=== PATIENT | female | born 1995 | race Caucasian/White ===

== ENCOUNTER 2021-12-22 10:45 | Outpatient (CLI) | payer OTHER, SELFPAY ==
[2021-12-22 11:44] LABS: Beta HCG Quantitative 38.01 mIU/ML
== END 2021-12-22 10:46 | disposition home or self-care (01) ==
PROVIDERS: PCP Emergency Medicine; Visit Provider Obstetrics & Gynecology
DX: O20.0 Threatened abortion (principal)
CPT/HCPCS: 36415; 84702

== ENCOUNTER 2021-12-25 14:26 | Outpatient (CLI) | payer OTHER, SELFPAY ==
--- NOTE | ~2021-12-25 | US_ITS ---
US OB <=14 wk fetus w TV DATE: 12/25/2021 15:19 INDICATION: First trimester vaginal bleeding, passage of clots TECHNIQUE: Real-time imaging via transabdominal and transvaginal approaches COMPARISON: None FINDINGS: The uterus measures 7.8 cm height, 5.8 cm transverse and 4.6 cm anteroposterior dimension. The endometrial echo measures 4 mm AP dimension. No intrauterine gestational sac is visualized. The right ovary measures 3.8 x 2.4 x 1.6 cm with a 1.6 x 2.6 cm cyst. The left ovary measures 3.3 x 1.9 x 1.7 cm. No free pelvic fluid collection is detected. IMPR ESSION: No evidence of intrauterine gestational sac Reviewed, dictated and finalized at [facility]. Reviewed, dictated and finalized at [facility]. SERVICES ARCHITECT
[2021-12-25 15:53] LABS: Beta HCG Quantitative 28.36 mIU/ML
== END 2021-12-25 14:27 | disposition home or self-care (01) ==
PROVIDERS: PCP Emergency Medicine; Visit Provider Obstetrics & Gynecology
DX: O46.91 Antepartum hemorrhage, unspecified, first trimester (principal); Z3A.00 Weeks of gestation of pregnancy not specified
CPT/HCPCS: 36415; 76801; 76817; 84702

== ENCOUNTER 2022-01-01 13:15 | Outpatient (CLI) | payer OTHER, SELFPAY ==
[2022-01-01 14:16] LABS: Beta HCG Quantitative < 2.39 mIU/ML
== END 2022-01-01 13:16 | disposition home or self-care (01) ==
LOC: ANHLAB 13:17
PROVIDERS: PCP Emergency Medicine; Visit Provider Obstetrics & Gynecology
DX: Z34.80 Encounter for supervision of other normal pregnancy, unspecified trimester (principal); Z3A.00 Weeks of gestation of pregnancy not specified
CPT/HCPCS: 36415; 84702

== ENCOUNTER 2022-02-08 08:35 | Outpatient (CLI) | payer OTHER, SELFPAY | END 2022-02-08 08:36 | disposition home or self-care (01) | LOC: ANHLAB 08:37 | PROVIDERS: PCP Emergency Medicine; Visit Provider Obstetrics & Gynecology | DX: Z32.00 Encounter for pregnancy test, result unknown (principal); Z3A.00 Weeks of gestation of pregnancy not specified | CPT/HCPCS: 36415; 84702 ==

== ENCOUNTER 2022-02-08 15:59 | Outpatient (CLI) | payer OTHER, SELFPAY ==
--- NOTE | ~2022-02-08 | US_ITS ---
EXAMINATION: US OB <=14 wk fetus w TV EXAM DATE: 02/08/2022 16:55 INDICATION: Threatened . 1st trimester.. TECHNIQUE: Pelvic obstetrical transabdominal and transvaginal sonogram was performed by a technologi . There are multiple grayscale and Doppler images available for interpretation. Comparison is made to prior examination from 12/25/2021. FINDINGS: Uterus measures 9.4 x 7.6 x 5.2 cm. There is intrauterine gestation sac. The 10 mm mean sac diameter corresponds to estimated gestational age by ultrasound of 5 weeks 5 days. No definite yolk sac identified. No pole. There is moderate size subchorionic hematoma measuring 4 mm in t hickness by 2.6 cm in diameter. The ovaries are morphologically normal. IMPRESSION: Intrauterine gestation sac with moderate-sized subchorionic hematoma. Cannot confirm or exclude viability at this time. Consider follow-up ultrasound in one week. Reviewed, dictated and finalized at [facility]. IMPRESSION: Intrauterine gestation sac with moderate-sized subchorionic hemato ma. Cannot confirm or exclude viability at this time. Consider follow-up ultras ound in one week.
== END 2022-02-08 16:00 | disposition home or self-care (01) ==
LOC: ANHIMG 16:00
PROVIDERS: PCP Emergency Medicine; Visit Provider Obstetrics & Gynecology
DX: O20.0 Threatened abortion (principal); Z3A.00 Weeks of gestation of pregnancy not specified
CPT/HCPCS: 36415; 76801; 76817; 84702

== ENCOUNTER 2022-07-12 15:32 | Outpatient (CLI) | payer OTHER, SELFPAY ==
--- NOTE | 2022-07-12 15:50 | ECG_ITS ---
Measurements Intervals [place] Rate: 80 P: 38 IN: 152 QRS: 54 QRSD: 77 T: 38 QT: 337 QTc: 390 Interpretive Statements SINUS RHYTHM NORMAL ECG NO PREVIOUS ECG AVAILABLE FOR COMPARISON Electronically Signed On 07-12-2022 16:00:30 CDT by Waylon Grimaldo M.D.
== END 2022-07-12 15:33 | disposition home or self-care (01) ==
PROVIDERS: PCP Emergency Medicine; Visit Provider Obstetrics & Gynecology
DX: R07.9 Chest pain, unspecified (principal)
CPT/HCPCS: 93005

== ENCOUNTER 2022-09-05 09:06 | Emergency (ER) | payer OTHER, SELFPAY ==
[2022-09-05 09:11] VITALS: BP 103/59; PULSE 115; RESP 16; TEMP 36.6; O2SAT 99
--- NOTE | 2022-09-05 09:12 | ED.URI ---
HPI - URI/Sore Throat General Stated Complaint: Sore Throat Time Seen by Provider: 09/05/22 09:12 Source: patient and RN notes reviewed History of Present Illness HPI Narrative: Patient is a 27-year-old female who presents the urgent care with complaints of a sore throat that started yesterday. Patient states that she has had some drainage but she typically has that during this time. Patient states that she takes a daily Zyrtec. Denies any fever, nausea, vomiting, headache. Patient states that she is . No other acute complaints. No acute distress noted. Patient read the plan of care. Some parts of this dictation were generated by voice recognition software and may contain typographical and/or grammatical inaccuracies. Related Data Home Medications Medication Instructions Recorded Confirmed Vitamin D3 1 tablet WEEKLY 09/05/22 09/05/22 cetirizine 5 mg tablet 5 mg DAILY 09/05/22 09/05/22 escitalopram oxalate 10 mg tablet 10 mg DAILY 09/05/22 09/05/22 Allergies Allergy/AdvReac Type Severity Reaction Status Date / Time Penicillins Allergy Severe Swelling Verified 09/05/22 09:35 Cat Dander Allergy Unknown UNKNOWN Uncoded 09/05/22 09:35 Review of Systems Review of Systems: CONSTITUTIONAL: Denies fever, chills, or sweats. EYES: Denies visual changes, redness, or discharge. ENT: Denies rhinorrhea, congestion, otalgia. Reports of sore throat CARDIOVASCULAR: Denies chest pain, palpitations, or edema. RESPIRATORY: Denies cough or dyspnea. GASTROINTESTINAL: Denies abdominal pain, nausea, vomiting, or diarrhea. GENITOURINARY: Denies dysuria or hematuria. SKIN: Denies rash or itching. MUSCULOSKELETAL: Denies back pain, joint pain, or myalgia. NEUROLOGIC: Denies headache, numbness, or weakness. All other systems reviewed are negative, except as documented in HPI. PMFSH Comments At the time of my signature, I reviewed and agree with the nursing past medical, surgical, social, and family history. There is no relevant family history pertinent to the patient complaint. Exam Narrative: GENERAL: This is a well-nourished, well-developed patient, in no apparent distress. HEAD: normocephalic, atraumatic. EYES: PERRL. Sclera clear/white. Vision is grossly intact. EARS: External ears normal, auditory canals clear and without drainage, TMs normal without perforation. Hearing grossly intact. NOSE: External nose normal with no obvious nasal discharge, nares without redness, no rhinorrhea. THROAT: Mucous membranes moist, mild erythema noted posterior pharynx with mild bilateral tonsillar edema without exudate or ulceration. Moderate postnasal drainage NECK: Neck supple, non-tender without lymphadenopathy, masses or thyromegaly. CARDIOVASCULAR: Regular rate and rhythm without murmurs, gallops, or rubs. RESPIRATORY: Clear to auscultation. Breath sounds equal bilaterally. No wheezes, rales, or rhonchi. SKIN: warm, intact with no suspicious lesions or rash, good texture and turgor. NEURO: awake, alert, and oriented to person, place and time. There were no obvious focal neurologic abnormalities. EXTREMITIES: No clubbing, cyanosis, or edema. Course Course Level of Care: Express Care Visit Vital Signs Vital signs: Vital Signs Temperature 97.8 F 09/05/22 09:11 Pulse Rate 115 H 09/05/22 09:11 Respiratory Rate 16 09/05/22 09:11 Blood Pressure 103/59 L 09/05/22 09:11 Pulse Oximetry 99 09/05/22 09:11 Oxygen Delivery Room Air 09/05/22 09:11 Temperature 97.8 F 09/05/22 09:11 Pulse Rate 115 H 09/05/22 09:11 Respiratory Rate 16 09/05/22 09:11 Blood Pressure 103/59 L 09/05/22 09:11 Pulse Oximetry 99 09/05/22 09:11 Oxygen Delivery Room Air 09/05/22 09:11 Reviewed MDM - URI/Sore Throat MDM Narrative Medical decision making narrative: Reviewed lab results with the patient. She is aware that strep swab was negative. Educated patient on culture we will call within 72 hours if culture is positive and a
== END 2022-09-05 09:50 | disposition home or self-care (01) ==
PROVIDERS: Emergency Provider Nurse Practitioner Family; PCP Emergency Medicine
DX: J02.9 Acute pharyngitis, unspecified (principal); J45.909 Unspecified asthma, uncomplicated; F41.9 Anxiety disorder, unspecified
CPT/HCPCS: 87081; 87880; 99213; G0463

== ENCOUNTER 2022-09-24 18:50 | Outpatient (CLI) | payer OTHER, SELFPAY ==
--- NOTE | 2022-09-24 19:32 | PC.NURSE ---
RNLuis Fernando called Dr. Huber, updated on PTs arrival with possible ROM. ROM plus negative, FHT reactive, Vitals WNL. Discharge orders given. PT given opportunity to ask questions and answered by RICARDO.
== END 2022-09-24 18:51 | disposition home or self-care (01) ==
PROVIDERS: PCP Emergency Medicine; Visit Provider Obstetrics & Gynecology
DX: O42.90 Premature rupture of membranes, unspecified as to length of time between rupture and onset of labor, unspecified weeks of gestation (principal); Z3A.00 Weeks of gestation of pregnancy not specified
CPT/HCPCS: 59025; 84112

== ENCOUNTER 2022-10-03 04:50 | Inpatient (IN) | payer OTHER, SELFPAY ==
--- NOTE | 2022-09-11 15:53 | PC.NURSE ---
Received after pre-admit appointment done
[2022-10-03] VITALS (28 sets, daily range): BP systolic 97–129; BP diastolic 56–100; PULSE 80–103; RESP 16–18; TEMP 36.2–36.9; O2SAT 99–100; BMI 36.8
--- NOTE | 2022-10-03 06:36 | LDADM ---
This patient, Geeta Webber, was admitted to Labor/Delivery/Recovery 103 on 10/03/22 at 04:50. Plans for labor, pain management and were discussed with patient. Patient/family oriented to hospital policies and general routines including ID bracelet, bed and alarms, visiting hours, pain management, procedures, bathroom and other care routines, personal items, smoking policy, room service/diet and guest tray routines, infant security routines, and visiting hours. Patient/Family are encouraged to report perceived risks to care and to ask questions if they do not understand what they are told or what they should do. See OBIX for further documentation.
[2022-10-03] MEDS: LACTATED RINGERS 1,000 ML 125 ML IV CONT (06:45)
[2022-10-03] MEDS: OXYTOCIN 30 UNITS/NS 500 ML 30 UNITS/500 ML BAG IV CONT (06:51)
[2022-10-03 07:02] LABS: Basophils Percent Auto 0.3 % (0.2-1.2); Eosinophils Absolute Auto 0.1 K/mm3 (0-0.3); Hematocrit 29.4 % (37.0-47.0); Hemoglobin 9.3 g/dL (12.0-15.0); Immature Granulocyte Absolute 0.03 K/mm3 (0.00-0.031); Immature Granulocyte Percent A 0.4 % (0-0.5); Lymphocytes Absolute Auto 1.77 K/mm3 (0.9-3.2); Lymphocytes Percent Auto 24.7 % (18.3-44.2); Mean Corpuscular HGB Conc 31.6 g/dl (32-36); Mean Corpuscular Hemoglobin 26.2 pg (26-34); Mean Corpuscular Volume 82.8 fl (80-100); Mean Platelet Volume 9.4 fl (7.4-10.4); Monocytes Absolute Auto 0.5 K/mm3 (0.1-0.6); Monocytes Percent Auto 6.5 % (2.6-8.5); Neutrophils Absolute Auto 4.8 K/mm3 (1.3-6.7); Neutrophils Percent Auto 67.1 % (45.5-73.1); Platelet Count Result 295 k/mm3 (150-375); Red Blood Count 3.55 M/mm3 (4.2-5.4); Red Cell Distribution Width 15.1 % (11.5-14.5); White Blood Count 7.2 K/mm3 (4.5-10.0)
--- NOTE | 2022-10-03 07:41 | PM.IMHP ---
H&P: HPI History of Present Illness Date/Time: 10/03/22 07:41 Chief Complaint: induction of labor at term Narrative: this is a 4 para 2 with last menstrual period 12/19/2021, EDC of 10/09/2022 placing her at 39 weeks gestation for induction of labor. Her cervix is favorable she is negative for group B strep. Risks and benefits were PMFSH Family History Family History Grandparent Diabetes mellitus Cancer Mother Hypertension Cerebrovascular accident Cancer Father Cerebrovascular accident Social History Social History Smoking status: Never smoker Lack of Transportation: No Lack of Food: Never True Current Housing: I Have Housing Concerned About Future Housing: No Difficulty Paying Gas/Electric Bills: No Difficulty Paying for Meds: No Currently Unemployed: No Education: High School Diploma/GED Difficulty w/ Childcare or Family Care: No Spiritual care concerns: No Meds Home Medications and Allergies Home Medications Medication Instructions Recorded Confirmed Type Vitamin D3 1 tablet WEEKLY 09/05/22 10/03/22 History cetirizine 5 mg tablet 5 mg DAILY 09/05/22 10/03/22 History escitalopram oxalate 10 mg tablet 10 mg DAILY 09/05/22 10/03/22 History prenat.vits,indira,gzl-rzzb-souxh 1 tablet PO HS 09/11/22 10/03/22 History Allergies Allergy/AdvReac Type Severity Reaction Status Date / Time Penicillins Allergy Severe Swelling Verified 10/03/22 06:42 Cat Dander Allergy Unknown UNKNOWN Uncoded 10/03/22 06:42 Vital Signs Vital Signs - 24 hr 10/03/22 06:26 10/03/22 07:02 10/03/22 07:00 Temperature 97.1 F L Pulse Rate 98 Respiratory Rate 16 Blood Pressure 105/62 Oxygen Delivery Room Air 10/03/22 07:30 Temperature Pulse Rate 92 Respiratory Rate Blood Pressure 107/56 L Oxygen Delivery Exam Const: General: cooperative, healthy appearing and comfortable Nutritional Appearance: average body habitus Orientation/consciousness: oriented to person, oriented to place and oriented to time HENMT: Head: normal to inspection Resp: Effort & Inspection: normal respiratory effort Cardio: Rate: regular rate Rhythm: regular rhythm Heart sounds: S1 normal heart sound present and S2 normal heart sound present GI: Inspection: normal to inspection ( gravid soft uterus) : Speculum Exam - Cervix: normal appearance of the cervix ( cervix 3/75/2. AROM clear. FHTs reassuring) H&P: Results Labs Labs: Short CBC 10/03/22 Range/Units 06:33 WBC 7.2 (4.5-10.0) K/mm3 Hgb 9.3 L (12.0-15.0) g/dL Hct 29.4 L (37.0-47.0) % Plt Count 295 (150-375) k/mm3 Assessment and Plan Assessment and plan (1) Term : Code(s): Z34.90 - Encounter for supervision of normal , unspecified, unspecified trimester Status: Acute Plan medical induction of labor. Spontaneous vaginal delivery is expected. She has an epidural candidate
--- NOTE | 2022-10-03 10:11 | P.PCNOB_ITS ---
OB - Delivery Note Procedure Delivery date: 10/03/22 Procedure: mil Events: Elective Induction of Labor Induction method: AROM Delivery augmentation: Pitocin Delivery monitor: External FHT Route of delivery: Episiotomy description: None Laceration Description: None Specimen: No Quantitative Blood Loss (ml): 59 Anesthesia type: None Disposition: Floor [place] Baby Date of : 10/03/22 Time of : 10:05 Weeks of gestation at delivery: 39 Infant gender: Female presentation: vertex position: Right Occiput Anterior Placenta delivery description: Spontaneous Cord Vessel Description: 3 Vessels, Nuchal Cord, Loose and Delayed Cord Clamping score one minute: 9 score five minutes: 9
[2022-10-03] MEDS: IBUPROFEN 600 MG TABLET PO ×2 (11:20→18:24)
[2022-10-03] MEDS: WITCH HAZEL 40 PADS 1 PAD TOPICAL (11:21)
[2022-10-03] MEDS: BENZOCAINE 20% AER SPR (*SP) 56 GM CAN 1 SPRAY TOPICAL (11:21)
[2022-10-03] MEDS: ACETAMINOPHEN 325 MG TABLET 650 MG PO (13:18)
[2022-10-03 15:31] LABS: Rapid Plasma Reagin Non-Reactive (NonReactive)
[2022-10-03] MEDS: POLYSACCHARIDE IRON COMPLEX 150 MG CAPSULE PO (18:24)
--- NOTE | 2022-10-03 18:24 | PC.NURSE ---
report given to RICARDO Fam
[2022-10-03] MEDS: ESCITALOPRAM OXALATE 10 MG TABLET PO (19:55)
[2022-10-04 04:20] VITALS: BP 104/65; PULSE 92; RESP 18; TEMP 36.4
[2022-10-04 04:24] VITALS: BP 104/65; PULSE 92
[2022-10-04 05:06] LABS: Hematocrit 28.8 % (37.0-47.0); Hemoglobin 8.9 g/dL (12.0-15.0)
--- NOTE | 2022-10-04 07:57 | PM.OBPNVD ---
OB - PN: Subj Subjective Date/time seen: 10/04/22 07:57 Patient comments: no complaints and pain well controlled baby status: doing well and nursing well OB - PN: Obj Data Labs CBC & Chem 7: 10/04/22 04:25 Labs: Laboratory Results - last 24 hr 10/03/22 10/03/22 10/04/22 06:33 06:33 04:25 Hgb 8.9 L Hct 28.8 L RPR Non-reactive Antibody Screen Negative OB - PN A/P Plan day: 1 Plan: routine care Time Spent With Patient Time: Total time spent is greater than 50% in coordination of care (as documented) at patient's floor/unit and/or counseling patient: Time with patient: less than 15 minutes Exam Const: General: cooperative, healthy appearing and comfortable Nutritional Appearance: average body habitus Orientation/consciousness: oriented to person, oriented to place and oriented to time
[2022-10-04] MEDS: DOCUSATE SODIUM 100 MG CAPSULE PO (08:00)
--- NOTE | 2022-10-04 08:07 | PM.DS ---
DS: Admitting Diagnosis Discharge Date 10/04/2022 Admitting Diagnosis term DS: Discharge Diagnosis Discharge Diagnosis (1) Term : Code(s): Z34.90 - Encounter for supervision of normal , unspecified, unspecified trimester Status: Acute DS: Summary Hospital Course Reason for hospitalization: patient was admitted for induction of labor at term Hospital Course: she had spontaneous vaginal delivery with successful induction. Her 24hour course was a unremarkable. She remained afebrile. She was up, voiding without difficulty, ambulating, breast-feeding, generally without complaints. Time Spent with Patient Time attestation: Total time spent providing and/or coordinating discharge services: Exam Const: General: cooperative, healthy appearing, comfortable and overweight Orientation/consciousness: oriented to person, oriented to place and oriented to time Resp: Effort & Inspection: normal respiratory effort GI: Inspection: normal to inspection DS: Data Data Completed and Pending Labs on day of discharge: Labs from last 24 hours 10/04/22 10/03/22 04:25 06:33 Hgb 8.9 L Hct 28.8 L RPR Non-reactive Discharge Plan Discharge Attending physician on discharge: Osvaldo Jones Discharging Clinician: Osvaldo Jones Patient Disposition: Home, Self-Care Activity: may shower and no straining Diet: heart healthy Wound Care Instructions: follow printed instructions Patient Instructions: Antibiotic Form Stand Alone Forms: General Discharge Information Follow-up/Referrals: Osvaldo Jones MD [Physician] - Discharge Medications: Continued cetirizine 5 mg tablet 5 mg DAILY escitalopram oxalate 10 mg tablet 10 mg DAILY Vitamin D3 1 tablet WEEKLY #2 Tablet 1 tablet PO HS Date of admission: 10/03/22 04:50 Primary Care Provider: James Ho Admitting Provider: Osvaldo Jones Attending physician on admission: Osvaldo Jones Condition: Stable
[2022-10-04] MEDS: POLYSACCHARIDE IRON COMPLEX 150 MG CAPSULE PO (08:11)
[2022-10-04] MEDS: MULTIVIT/MIN/PREN/FOL AC/IRON TABLET 1 TAB PO (08:11)
[2022-10-04 09:05] VITALS: BP 98/51; PULSE 74; RESP 14; TEMP 37.2; O2SAT 100
[2022-10-04 09:08] VITALS: BP 98/51; PULSE 86
[2022-10-04] MEDS: ACETAMINOPHEN 325 MG TABLET 650 MG PO (11:25)
--- NOTE | 2022-10-04 14:41 | PC.NURSE ---
[id number] Mother led the conversation with her experience and plan to feed her infant so far and her ability to independently latch optimally without discomfort. has had appropriate feedings in the last 24 hours meets the outcomes for weight, output and jaundice at this time. Mother states she is confident to continue effectively breastfeed her at home or when to call for assistance and denies any additional assistance or education at this time. Reinforced understanding of milk production, transition of milk, signs of adequate intake, prevention/relief of engorgement, responsive after visualizing feeding cues, the different methods of stimulating infant to breastfeed 2-3 hours after the start of the last feeding, community resources, medication information reviewed per [facility] and when to call a provider using the resource of the mom and baby guide/[facility] website. Mother voiced understanding of the education shared and demonstrates latching her infant to the right breast effectively using the football position with no pain.
[2022-10-05 10:34] VITALS: BP 107/63; PULSE 92; RESP 20; TEMP 36.9; O2SAT 97
== END 2022-10-04 13:52 | disposition home or self-care (01) | DRG 807 ==
LOC: ANHLDR 04:54 → ANHOBPP 17:07
PROVIDERS: Admitting Provider Obstetrics & Gynecology; PCP Emergency Medicine; Visit Provider Obstetrics & Gynecology
DX: O69.81X0 Labor and delivery complicated by cord around neck, without compression, not applicable or unspecified (principal); Z37.0 Single live birth; O62.3 Precipitate labor; O76 Abnormality in fetal heart rate and rhythm complicating labor and delivery; Z3A.39 39 weeks gestation of pregnancy
CPT/HCPCS: 36415; 85014; 85018; 85025; 86592; 86850; 86900; 86901; A9270; J2590; J2795; J7120

== ENCOUNTER 2023-05-14 09:01 | Emergency (ER) | payer OTHER, SELFPAY ==
[2023-05-14 09:12] VITALS: BP 102/71; PULSE 84; RESP 20; TEMP 36.5; O2SAT 100
--- NOTE | 2023-05-14 09:12 | ED.URI ---
HPI - URI/Sore Throat General Chief Complaint: Upper Respiratory Infection Stated Complaint: Sore Throat Source: patient and RN notes reviewed History of Present Illness HPI Narrative: 28-year-old female presents to urgent care with complaints of a sore throat x2 days. Patient states she has painful swallowing. Patient denies any fevers, chills, vomiting, ear pain, or congestion. pt has not had any analgesics for her symptoms. Related Data Home Medications Medication Instructions Recorded Confirmed cetirizine 5 mg tablet 5 mg DAILY 09/05/22 05/14/23 albuterol sulfate 90 mcg/actuation 2 puff inhalation Q4-6H PRN 05/14/23 05/14/23 aerosol inhaler Shortness Of Breath Or Wheezing escitalopram oxalate 20 mg tablet 20 mg PO DAILY 05/14/23 05/14/23 levonorgestrel 17.5 mcg/24 hrs intrauterine 05/14/23 (5yrs) 19.5mg intrauterine device (Kyleena) Allergies Allergy/AdvReac Type Severity Reaction Status Date / Time Penicillins Allergy Severe Swelling Verified 05/14/23 09:29 Review of Systems Review of Systems: Pertinent positives and pertinent negatives per HPI. [facility] Family History Family History Grandparent Diabetes mellitus Cancer Mother Hypertension Cerebrovascular accident Cancer Father Cerebrovascular accident Social History Social History Smoking status: Never smoker Lack of Transportation: No Lack of Food: Never True Current Housing: I Have Housing Concerned About Future Housing: No Difficulty Paying Gas/Electric Bills: No Difficulty Paying for Meds: No Currently Unemployed: No Education: High School Diploma/GED Difficulty w/ Childcare or Family Care: No Spiritual care concerns: No Comments At the time of my signature, I reviewed and agree with the nursing past medical, surgical, social, and family history. There is no relevant family history pertinent to the patient complaint. Exam Narrative: GENERAL: This is a well-nourished, well-developed patient, in no apparent distress. HEAD: normocephalic, atraumatic. EYES: Sclera clear/white. Vision is grossly intact. EARS: External ears normal, auditory canals clear and without drainage, TMs normal without perforation. Hearing grossly intact. NOSE: External nose normal with no obvious nasal discharge, nares without redness, no rhinorrhea. THROAT: Mucous membranes moist, posterior pharynx erythremic with mild exudate NECK: Neck supple, non-tender without lymphadenopathy, masses or thyromegaly. CARDIOVASCULAR: Regular rate RESPIRATORY: No respiratory distress SKIN: warm, intact with no suspicious lesions or rash, good texture and turgor. NEURO: awake, alert, and oriented to person, place and time. There were no obvious focal neurologic abnormalities. Course Course Level of Care: Express Care Visit Vital Signs Vital signs: Vital Signs Temperature 97.7 F 05/14/23 09:12 Pulse Rate 84 05/14/23 09:12 Respiratory Rate 20 05/14/23 09:12 Blood Pressure 102/71 05/14/23 09:12 Pulse Oximetry 100 05/14/23 09:12 Oxygen Delivery Room Air 05/14/23 09:12 Temperature 97.7 F 05/14/23 09:12 Pulse Rate 84 05/14/23 09:12 Respiratory Rate 20 05/14/23 09:12 Blood Pressure 102/71 05/14/23 09:12 Pulse Oximetry 100 05/14/23 09:12 Oxygen Delivery Room Air 05/14/23 09:12 Reviewed MDM - URI/Sore Throat MDM Narrative Medical decision making narrative: After 24 hours on antibiotics throw tooth brush away and start using a new one. Increase your Vitamin C. Do not share drinks. Take Motrin alternating with Tylenol for pain and/or fever alternating every 4 hours. Increase fluids, avoid caffeine. Take a probiotic daily or eat a low sugar yogurt while taking the antibiotic. Follow up with Primary provider if not getting better this week Differential Diagnosis Differential min
== END 2023-05-14 09:45 | disposition home or self-care (01) ==
PROVIDERS: Emergency Provider Nurse Practitioner Family; PCP Emergency Medicine
DX: J02.0 Streptococcal pharyngitis (principal)
CPT/HCPCS: 87880; 99213; G0463